=== PATIENT | male | born 1995 | race African-American/Black ===

== ENCOUNTER 2024-06-06 19:24 | Emergency (ER) | payer OTHER ==
[~2024-06-06] VITALS: Ht 175.3 cm; Wt 78.0 kg
[2024-06-06 19:54] VITALS: BP 144/67; PULSE 86; TEMP 98.1; O2SAT 98
[2024-06-06] MEDS ORDERED: NAPR220C61 MT (21:43)
[2024-06-06] MEDS: IBUPROFEN 600MG TABLET PO ONE (21:48)
[2024-06-06 21:55] VITALS: RESP 16
== END 2024-06-06 21:55 | disposition home or self-care (01) ==
LOC: ER 19:24
DX: S99.912A Unspecified injury of left ankle, initial encounter (principal); G89.11 Acute pain due to trauma; X58.XXXA Exposure to other specified factors, initial encounter; Y93.89 Activity, other specified; Y92.89 Other specified places as the place of occurrence of the external cause; Y99.8 Other external cause status
CPT/HCPCS: 29515; 73600; 73620; 99284